=== PATIENT | male | born 1955 | race African-American/Black ===

== ENCOUNTER → 2018-06-19 | Outpatient (CLI) | payer BC ==
[~2018-06-19] MED LIST: ASPI-1159 PO; CENTRUM; FENO145T36 PO; FLUT16SP15 NS; IRBE300T42 PO; IRON; MUCINEX; ROBITUSSIN
[2018-06-19 10:18] LABS: BASOPHILS % 1.3 % (0.0-2.0); EOSINOPHILS % 1.6 % (0.0-5.0); HEMATOCRIT. 39.8 % (42.0-52.0); HEMOGLOBIN. 13.5 g/dL (14.0-18.0); LYMPHOCYTES % 26.5 % (20.0-50.0); MEAN CORPUSCULAR HEMOGLOBIN 31.4 pg (28.0-32.0); MEAN CORPUSCULAR VOLUME 92.6 fL (80.0-94.0); MEAN PLATELET VOLUME 8.7 fl (7.4-10.4); MONOCYTES % 6.5 % (2.0-8.0); NEUTROPHILS % 64.1 % (40.0-76.0); PLATELET 232 x1000/uL (130-400); RED CELL DISTRIBUTION WIDTH 12.3 % (11.6-14.6)
[2018-06-19 10:29] LABS: CLARITY URINE CLEAR (CLEAR); COLOR URINE YELLOW (YELLOW); KETONES URINE NEGATIVE (NEGATIVE); LEUKOCYTE ESTERASE URINE NEGATIVE (NEGATIVE); NITRITE URINE NEGATIVE (NEGATIVE); OCCULT BLOOD URINE TRACE (NEGATIVE); PH URINE 6.5 (4.5-8.0); PROTEIN URINE NEGATIVE (NEGATIVE); SPECIFIC GRAVITY URINE 1.022 (1.005-1.030)
[2018-06-19 10:37] LABS: CHLORIDE 102 mEq/L (98-107)
[2018-06-19 10:45] LABS: HDL CHOLESTEROL 52 mg/dL (40-59)
[2018-06-19 10:47] LABS: LDL CHOLESTEROL 90 mg/dL (5-100)
[2018-06-19 10:49] LABS: T4 FREE 1.03 ng/dL (0.76-1.46)
== END | disposition home or self-care (01) ==
LOC: LAB 09:47
PROVIDERS: ATTEND Specialist
DX: E78.2 Mixed hyperlipidemia (principal); N39.0 Urinary tract infection, site not specified
CPT/HCPCS: 36415; 80061; 82652; 83036; 84439; 84443; 84481

== ENCOUNTER → 2020-04-27 | Outpatient (CLI) | payer BC ==
[~2020-04-27] MED LIST changes: -ASPI-1159 PO; +ASPI-1497 PO; +FENO145T25 PO; -FENO145T36 PO
[2020-04-27 11:47] LABS: BASOPHILS % 1.3 % (0.0-2.0); EOSINOPHILS % 1.9 % (0.0-5.0); HEMATOCRIT. 40.3 % (42.0-52.0); HEMOGLOBIN. 13.8 g/dL (14.0-18.0); LYMPHOCYTES % 23.9 % (20.0-50.0); MEAN CORPUSCULAR HEMOGLOBIN 30.9 pg (28.0-32.0); MEAN CORPUSCULAR VOLUME 90.3 fL (80.0-94.0); MEAN PLATELET VOLUME 8.4 fl (7.4-10.4); MONOCYTES % 8.3 % (2.0-8.0); NEUTROPHILS % 64.6 % (40.0-76.0); PLATELET 241 x1000/uL (130-400); RED BLOOD CELL COUNT 4.46 mill/uL (4.7-6.1); RED CELL DISTRIBUTION WIDTH 12.3 % (11.6-14.6)
[2020-04-27 11:53] LABS: CHLORIDE 106 mEq/L (98-107)
== END | disposition home or self-care (01) ==
LOC: LAB 11:21
PROVIDERS: ATTEND Internal Medicine Gastroenterology
DX: R10.30 Lower abdominal pain, unspecified (principal)
CPT/HCPCS: 36415; 80053; 85025

== ENCOUNTER → 2020-04-29 | Outpatient (CLI) | payer BC ==
[~2020-04-29] MED LIST changes: +IOHEXOL-300 100 ML BOTTLE ONE
== END | disposition home or self-care (01) ==
LOC: CT 06:53
PROVIDERS: ATTEND Internal Medicine Gastroenterology
DX: K57.30 Diverticulosis of large intestine without perforation or abscess without bleeding (principal); K42.9 Umbilical hernia without obstruction or gangrene; N40.0 Benign prostatic hyperplasia without lower urinary tract symptoms; M47.819 Spondylosis without myelopathy or radiculopathy, site unspecified; I70.90 Unspecified atherosclerosis; J98.11 Atelectasis
CPT/HCPCS: 74177; Q9967; Z7610

== ENCOUNTER → 2020-06-17 | Outpatient (CLI) | payer BC ==
[~2020-06-17] MED LIST changes: -IOHEXOL-300 100 ML BOTTLE ONE
[2020-06-18 04:07] LABS: PSA FREE 1.14 ng/mL
== END | disposition home or self-care (01) ==
LOC: LAB 07:10
PROVIDERS: ATTEND Urology
DX: N40.0 Benign prostatic hyperplasia without lower urinary tract symptoms (principal)
CPT/HCPCS: 84153; 84154

== ENCOUNTER → 2020-12-21 | Outpatient (CLI) | payer BC ==
[2020-12-22 07:09] LABS: % FREE PSA 21.6 % (.); PSA FREE 1.51 ng/mL
== END | disposition home or self-care (01) ==
LOC: LAB 08:54
PROVIDERS: ATTEND Urology
DX: N40.0 Benign prostatic hyperplasia without lower urinary tract symptoms (principal)
CPT/HCPCS: 84153; 84154

== ENCOUNTER → 2021-08-25 | Outpatient (CLI) | payer BC ==
[2021-08-25 07:24] LABS: BASOPHILS % 1.6 % (0.0-2.0); EOSINOPHILS % 2.6 % (0.0-5.0); HEMOGLOBIN. 13.4 g/dL (14.0-18.0); LYMPHOCYTES % 24.6 % (20.0-50.0); MEAN CORPUSCULAR HEMOGLOBIN 30.2 pg (28.0-32.0); MEAN CORPUSCULAR VOLUME 90.1 fL (80.0-94.0); MEAN PLATELET VOLUME 8.6 fl (7.4-10.4); MONOCYTES % 9.1 % (2.0-8.0); NEUTROPHILS % 62.1 % (40.0-76.0); PLATELET 217 x1000/uL (130-400); RED BLOOD CELL COUNT 4.44 mill/uL (4.7-6.1); RED CELL DISTRIBUTION WIDTH 12.9 % (11.6-14.6)
[2021-08-25 07:32] LABS: CHLORIDE 104 mEq/L (98-107)
[2021-08-25 07:47] LABS: HDL CHOLESTEROL 54 mg/dL (40-59); LDL CHOLESTEROL 73 mg/dL (5-100)
[2021-08-26 07:10] LABS: *CREATININE RANDOM URINE 144.1 mg/dL (Not Estab.); MICROALBUMIN RANDOM URINE 8.9 ug/mL (Not Estab.)
== END | disposition home or self-care (01) ==
LOC: LAB 06:51
PROVIDERS: ATTEND Internal Medicine Endocrinology, Diabetes & Metabolism
DX: I10 Essential (primary) hypertension (principal); E11.9 Type 2 diabetes mellitus without complications; E78.00 Pure hypercholesterolemia, unspecified
CPT/HCPCS: 36415; 80053; 80061; 82043; 82570; 83036; 84443; 85025

== ENCOUNTER → 2022-01-19 | Outpatient (CLI) | payer BC | END | disposition home or self-care (01) | LOC: LAB 07:10 | PROVIDERS: ATTEND Urology | DX: N40.0 Benign prostatic hyperplasia without lower urinary tract symptoms (principal); R97.20 Elevated prostate specific antigen [PSA] | CPT/HCPCS: 36415; 84153; G0103 ==

== ENCOUNTER → 2022-02-15 | Outpatient (CLI) | payer BC ==
[2022-02-15 08:39] LABS: CHLORIDE 103 mEq/L (98-107)
== END | disposition home or self-care (01) ==
LOC: LAB 06:55
PROVIDERS: ATTEND Urology
DX: R97.20 Elevated prostate specific antigen [PSA] (principal); N40.1 Benign prostatic hyperplasia with lower urinary tract symptoms
CPT/HCPCS: 36415; 80048

== ENCOUNTER → 2022-05-31 | Outpatient (CLI) | payer BC ==
[2022-05-31 08:00] LABS: BASOPHILS % 0.4 % (0.0-2.0); EOSINOPHILS % 1.7 % (0.0-5.0); HEMATOCRIT. 42.1 % (42.0-52.0); HEMOGLOBIN. 14.4 g/dL (14.0-18.0); LYMPHOCYTES % 23.5 % (20.0-50.0); MEAN CORPUSCULAR HEMOGLOBIN 31.4 pg (28.0-32.0); MEAN CORPUSCULAR VOLUME 91.5 fL (80.0-94.0); MONOCYTES % 9.4 % (2.0-8.0); PLATELET 227 x1000/uL (130-400); RED CELL DISTRIBUTION WIDTH 12.6 % (11.6-14.6)
[2022-05-31 08:56] LABS: CHLORIDE 103 mEq/L (98-107); HDL CHOLESTEROL 64 mg/dL (40-59); LDL CHOLESTEROL 133 mg/dL (5-100)
[2022-06-02 08:09] LABS: *CREATININE RANDOM URINE 39.5 mg/dL (Not Estab.); MICROALBUMIN RANDOM URINE 26.4 ug/mL (Not Estab.)
== END | disposition home or self-care (01) ==
LOC: LAB 07:26
PROVIDERS: ATTEND Internal Medicine Endocrinology, Diabetes & Metabolism
DX: I10 Essential (primary) hypertension (principal); E11.9 Type 2 diabetes mellitus without complications; E78.5 Hyperlipidemia, unspecified
CPT/HCPCS: 36415; 80053; 80061; 82043; 82570; 83036; 85025

== ENCOUNTER → 2022-10-25 | Outpatient (CLI) | payer BC ==
[~2022-10-25] MED LIST changes: +AMLO10TA80 PO; +ATOR20TA65 PO; +DAPA10TA PO; +DUTA0.5C37 PO; +EMPA25TA PO; +FENO145 PO; +FLAS1KIT SQ; +MELO-104 PO; +OLME40TA18 PO; +SITA25TA3 MT; +TAMS-11 PO
[2022-10-25 12:06] LABS: EOSINOPHILS % 1.2 % (0.0-5.0); HEMATOCRIT. 43.8 % (42.0-52.0); MEAN CORPUSCULAR HEMOGLOBIN 31.1 pg (28.0-32.0); MEAN CORPUSCULAR HGB CONC 34.3 g/dL (31.0-37.0); MEAN CORPUSCULAR VOLUME 90.6 fL (80.0-94.0); MEAN PLATELET VOLUME 8.2 fl (7.4-10.4); MONOCYTES % 7.4 % (2.0-8.0); NEUTROPHILS % 72.4 % (40.0-76.0); PLATELET 222 x1000/uL (130-400); RED BLOOD CELL COUNT 4.83 mill/uL (4.7-6.1); RED CELL DISTRIBUTION WIDTH 12.4 % (11.6-14.6)
[2022-10-25 12:18] LABS: CHLORIDE 103 mEq/L (98-107); INDEX HEMOLYSI 1 (1-3); INDEX ICTERIC 1 (1-4); INDEX LIPEMIC 1 (1-3); SODIUM 137 mEq/L (136-145)
[2022-10-25 12:35] LABS: ALANINE AMINOTRANSFERASE 25 IU/L (13-61); ASPARTATE AMINOTRANSFERASE 18 IU/L (15-37); BILIRUBIN TOTAL 0.5 mg/dL (0.1-1.0); CALCIUM 9.2 mg/dL (8.5-10.1); CARBON DIOXIDE 29 mEq/L (21-32); CHOLESTEROL 228 mg/dL (<200); CREATININE 1.2 mg/dL (0.6-1.3); GLUCOSE 147 mg/dL (70-105); HDL CHOLESTEROL 63 mg/dL (40-59); LDL CHOLESTEROL 153 mg/dL (5-100); NT PRO B-TYPE NATRIURETIC PEP 83 pg/mL (5-125); PROTEIN TOTAL 7.8 g/dL (6.0-8.3); TRIGLYCERIDE 134 mg/dL (0-150); UREA NITROGEN BLOOD 20 mg/dL (7-21)
== END | disposition home or self-care (01) ==
LOC: LAB 11:39
PROVIDERS: ATTEND Specialist
DX: I11.9 Hypertensive heart disease without heart failure (principal); E78.2 Mixed hyperlipidemia
CPT/HCPCS: 36415; 80053; 80061; 82306; 83036; 83880; 84443; 85025

== ENCOUNTER 2022-11-01 11:30 | Inpatient (IN) | payer BC ==
[~2022-11-01] VITALS: Ht 172.7 cm; Wt 80.7 kg
[~2022-11-01 11:30] MED LIST changes: -AMLO10TA80 PO; -ATOR20TA65 PO; -DAPA10TA PO; -DUTA0.5C37 PO; -EMPA25TA PO; -FENO145 PO; -FLAS1KIT SQ; -MELO-104 PO; -OLME40TA18 PO; -SITA25TA3 MT; -TAMS-11 PO
[2022-11-01] MEDS ORDERED: ASPIRIN 325MG EC TABLET PO ONE (12:00)
[2022-11-01] MEDS ORDERED: AMLO10TA80 PO (12:44)
[2022-11-01] MEDS ORDERED: OLME40TA18 PO (12:44)
[2022-11-01] MEDS ORDERED: ATOR20TA65 PO (12:44)
[2022-11-01] MEDS ORDERED: DUTA0.5C37 PO (12:44)
[2022-11-01] MEDS ORDERED: FENO145 PO (12:44)
[2022-11-01] MEDS ORDERED: AMLODIPINE 5MG TABLET PO NR (12:45)
[2022-11-01] MEDS ORDERED: LOSARTAN POTASSIUM 50 MG TABLET PO SCH (12:45)
[2022-11-01 12:46] LABS: CHLORIDE 111 mEq/L (98-107); INDEX HEMOLYSI 2 (1-3); INDEX ICTERIC 1 (1-4); INDEX LIPEMIC 1 (1-3); POTASSIUM 3.7 mEq/L (3.5-5.1); SODIUM 138 mEq/L (136-145)
[2022-11-01] MEDS ORDERED: MELO-104 PO (12:47)
[2022-11-01] MEDS ORDERED: DAPA10TA PO (12:47)
[2022-11-01] MEDS ORDERED: TAMS-11 PO (12:47)
[2022-11-01] MEDS ORDERED: FLAS1KIT SQ (12:47)
[2022-11-01] MEDS ORDERED: EMPA25TA PO (12:47)
[2022-11-01 12:55] LABS: ALANINE AMINOTRANSFERASE 19 IU/L (13-61); ALBUMIN 3.2 g/dL (3.4-5.0); ASPARTATE AMINOTRANSFERASE 19 IU/L (15-37); BILIRUBIN TOTAL 0.5 mg/dL (0.1-1.0); CALCIUM 7.9 mg/dL (8.5-10.1); CARBON DIOXIDE 22 mEq/L (21-32); CREATININE 0.9 mg/dL (0.6-1.3); ETHANOL BLOOD < 10 mg/dL (-10); GLUCOSE 131 mg/dL (70-105); PROTEIN TOTAL 6.4 g/dL (6.0-8.3); UREA NITROGEN BLOOD 14 mg/dL (7-21)
[2022-11-01 12:56] LABS: EOSINOPHILS % 1.3 % (0.0-5.0); HEMATOCRIT. 43.4 % (42.0-52.0); HEMOGLOBIN. 14.5 g/dL (14.0-18.0); LYMPHOCYTES % 24.8 % (20.0-50.0); MEAN CORPUSCULAR HEMOGLOBIN 31.2 pg (28.0-32.0); MEAN CORPUSCULAR HGB CONC 33.5 g/dL (31.0-37.0); MEAN CORPUSCULAR VOLUME 93.1 fL (80.0-94.0); MEAN PLATELET VOLUME 8.6 fl (7.4-10.4); MONOCYTES % 8.7 % (2.0-8.0); NEUTROPHILS % 64.2 % (40.0-76.0); PLATELET 198 x1000/uL (130-400); RED BLOOD CELL COUNT 4.66 mill/uL (4.7-6.1); RED CELL DISTRIBUTION WIDTH 12.8 % (11.6-14.6); WHITE BLOOD COUNT 6.1 x1000/uL (4.5-11.0)
[2022-11-01] MEDS ORDERED: ACETAMINOPHEN 325MG TABLET PO PRN (13:30)
[2022-11-01] MEDS ORDERED: MECLIZINE 25MG TABLET PO PRN (13:30)
[2022-11-01] MEDS ORDERED: MAGNESIUM/ALUMINUM HYDROXIDE/SIMETHICONE 30ML UDC PO PRN (13:30)
[2022-11-01] MEDS ORDERED: TRAMADOL 50MG TABLET PO PRN (13:30)
[2022-11-01] MEDS ORDERED: GUAIFENESIN 200MG/10ML SUGAR FREE UDC PO PRN (13:30)
[2022-11-01] MEDS ORDERED: DOCUSATE SODIUM 100MG CAPSULE PO PRN (13:30)
[2022-11-01] MEDS ORDERED: ONDANSETRON HCL 4MG/2ML INJ IV PRN (13:30)
[2022-11-01] MEDS ORDERED: NALOXONE HCL 0.4MG/ML VIAL IV PRN (13:45)
[2022-11-01 13:53] LABS: CLARITY URINE CLEAR (CLEAR); COLOR URINE YELLOW (YELLOW); GLUCOSE URINE 2+ (NEGATIVE); KETONES URINE NEGATIVE (NEGATIVE); LEUKOCYTE ESTERASE URINE NEGATIVE (NEGATIVE); NITRITE URINE NEGATIVE (NEGATIVE); OCCULT BLOOD URINE 3+ (NEGATIVE); PH URINE 7.5 (4.5-8.0); PROTEIN URINE TRACE (NEGATIVE); SPECIFIC GRAVITY URINE 1.021 (1.005-1.030)
[2022-11-01 13:56] LABS: YEAST URINE NONE SEEN
[2022-11-01 14:00] VITALS: BP 180/99; PULSE 97; RESP 20; TEMP 97.3
[2022-11-01 14:07] LABS: RBC URINE 25-50 /hpf (0-2); WBC URINE 0-2 /hpf (0-2)
[2022-11-01 14:08] LABS: BACTERIA URINE FEW; SQUAMOUS EPITHELIAL CELL URINE RARE /lpf (RARE/1+)
[2022-11-01] MEDS: ENOXAPARIN 40MG/0.4ML SYR SUBCUT SCH (14:23)
[2022-11-01] MEDS ORDERED: CLONIDINE 0.1MG TABLET PO PRN (14:30)
[2022-11-01] MEDS ORDERED: SITA25TA3 MT (14:59)
[2022-11-01 15:18] LABS: *AMPHETAMINES SCREEN URINE NEGATIVE (NEGATIVE); *BARBITURATES SCREEN URINE NEGATIVE (NEGATIVE); *BENZODIAZEPINES SCREEN URINE NEGATIVE (NEGATIVE); *COCAINE SCREEN URINE NEGATIVE (NEGATIVE); CANNABINOID URINE SCREEN NEGATIVE (NEGATIVE); ECSTASY MDMA SCREEN URINE NEGATIVE (NEGATIVE); METHADONE URINE SCREEN NEGATIVE (NEGATIVE); OPIATES URINE SCREEN NEGATIVE (NEGATIVE); PHENCYCLIDINE URINE SCREEN NEGATIVE (NEGATIVE)
[2022-11-01 16:00] VITALS: BP 170/87; PULSE 71; RESP 18; TEMP 97.4
[2022-11-01] MEDS ORDERED: DEXTROSE 50% WATER 50ML SYRINGE IV PRN (20:15)
[2022-11-01] MEDS: CLOPIDOGREL 75MG TABLET PO SCH (20:48)
[2022-11-01] MEDS: ATORVASTATIN CALCIUM 40MG TABLET PO SCH (20:48)
[2022-11-01] MEDS: TAMSULOSIN HCL 0.4MG SR CAPSULE PO SCH (20:48)
[2022-11-01] MEDS: DUTASTERIDE 0.5MG CAPSULE PO SCH (20:48)
[2022-11-01] MEDS: BLOOD SUGAR DIAGNOSTIC STRIP TEST SCH (20:53)
[2022-11-01 20:54] VITALS: BP 151/75; PULSE 82; RESP 19; TEMP 97.2
[2022-11-01] MEDS: INSULIN LISPRO 100 UNITS/ML SUBCUT SCH (20:58)
[2022-11-02] VITALS (7 sets, daily range): BP systolic 123–156; BP diastolic 68–92; PULSE 80–95; RESP 18–20; TEMP 97.5–98.6
[2022-11-02] MEDS: BLOOD SUGAR DIAGNOSTIC STRIP TEST SCH ×4 (07:03→20:42)
[2022-11-02] MEDS: INSULIN LISPRO 100 UNITS/ML SUBCUT SCH ×4 (07:26→20:37)
[2022-11-02] MEDS: AMLODIPINE 10MG TABLET PO SCH (08:58)
[2022-11-02] MEDS: DUTASTERIDE 0.5MG CAPSULE PO SCH (08:59)
[2022-11-02] MEDS: CLOPIDOGREL 75MG TABLET PO SCH (08:59)
[2022-11-02] MEDS: TAMSULOSIN HCL 0.4MG SR CAPSULE PO SCH (08:59)
[2022-11-02] MEDS: ASPIRIN 325MG TABLET PO SCH (09:00)
[2022-11-02 12:49] LABS: BASOPHILS % 1.1 % (0.0-2.0); EOSINOPHILS % 1.9 % (0.0-5.0); HEMATOCRIT. 40.3 % (42.0-52.0); HEMOGLOBIN. 14.2 g/dL (14.0-18.0); LYMPHOCYTES % 23.8 % (20.0-50.0); MEAN CORPUSCULAR HEMOGLOBIN 31.9 pg (28.0-32.0); MEAN CORPUSCULAR HGB CONC 35.2 g/dL (31.0-37.0); MEAN CORPUSCULAR VOLUME 90.6 fL (80.0-94.0); MEAN PLATELET VOLUME 8.4 fl (7.4-10.4); MONOCYTES % 9.7 % (2.0-8.0); NEUTROPHILS % 63.5 % (40.0-76.0); PLATELET 214 x1000/uL (130-400); RED BLOOD CELL COUNT 4.44 mill/uL (4.7-6.1); RED CELL DISTRIBUTION WIDTH 12.3 % (11.6-14.6)
[2022-11-02 12:53] LABS: CHLORIDE 103 mEq/L (98-107); INDEX HEMOLYSI 1 (1-3); INDEX ICTERIC 1 (1-4); INDEX LIPEMIC 1 (1-3); POTASSIUM 3.9 mEq/L (3.5-5.1); SODIUM 136 mEq/L (136-145)
[2022-11-02 13:03] LABS: ALANINE AMINOTRANSFERASE 22 IU/L (13-61); ALBUMIN 3.6 g/dL (3.4-5.0); ASPARTATE AMINOTRANSFERASE 16 IU/L (15-37); BILIRUBIN TOTAL 0.6 mg/dL (0.1-1.0); CALCIUM 9.3 mg/dL (8.5-10.1); CARBON DIOXIDE 31 mEq/L (21-32); CHOLESTEROL 197 mg/dL (<200); CREATININE 1.1 mg/dL (0.6-1.3); GLUCOSE 157 mg/dL (70-105); HDL CHOLESTEROL 56 mg/dL (40-59); LDL CHOLESTEROL 128 mg/dL (5-100); PROTEIN TOTAL 7.2 g/dL (6.0-8.3); TRIGLYCERIDE 77 mg/dL (0-150); UREA NITROGEN BLOOD 14 mg/dL (7-21)
[2022-11-02] MEDS: ENOXAPARIN 40MG/0.4ML SYR SUBCUT SCH (15:44)
[2022-11-02] MEDS: ATORVASTATIN CALCIUM 40MG TABLET PO SCH (20:26)
[2022-11-02] MEDS ORDERED: MELATONIN 3MG TABLET PO NR (21:00)
[2022-11-03 04:00] VITALS: BP 159/81; PULSE 99; RESP 18; TEMP 97.7
[2022-11-03 06:43] VITALS: BP 159/81; PULSE 99; RESP 18; TEMP 97.7
[2022-11-03] MEDS: BLOOD SUGAR DIAGNOSTIC STRIP TEST SCH ×3 (06:45→17:34)
[2022-11-03] MEDS: INSULIN LISPRO 100 UNITS/ML SUBCUT SCH ×3 (06:55→17:32)
[2022-11-03 08:00] VITALS: BP 143/86; PULSE 93; RESP 20; TEMP 97.3
[2022-11-03 08:20] LABS: BASOPHILS % 0.7 % (0.0-2.0); EOSINOPHILS % 2.2 % (0.0-5.0); HEMATOCRIT. 44.1 % (42.0-52.0); HEMOGLOBIN. 14.6 g/dL (14.0-18.0); LYMPHOCYTES % 31.7 % (20.0-50.0); MEAN CORPUSCULAR HEMOGLOBIN 31.1 pg (28.0-32.0); MEAN CORPUSCULAR HGB CONC 33.2 g/dL (31.0-37.0); MEAN CORPUSCULAR VOLUME 93.9 fL (80.0-94.0); MONOCYTES % 9.3 % (2.0-8.0); NEUTROPHILS % 56.1 % (40.0-76.0); PLATELET 234 x1000/uL (130-400); RED CELL DISTRIBUTION WIDTH 12.4 % (11.6-14.6); WHITE BLOOD COUNT 5.8 x1000/uL (4.5-11.0)
[2022-11-03] MEDS: TAMSULOSIN HCL 0.4MG SR CAPSULE PO SCH (08:49)
[2022-11-03] MEDS: ASPIRIN 325MG TABLET PO SCH (08:49)
[2022-11-03] MEDS: DUTASTERIDE 0.5MG CAPSULE PO SCH (08:49)
[2022-11-03] MEDS: AMLODIPINE 10MG TABLET PO SCH (08:50)
[2022-11-03] MEDS: TRIAMTERENE/HCTZ 37.5/25MG TABLET PO SCH ×2 (08:50→08:52)
[2022-11-03] MEDS: CLOPIDOGREL 75MG TABLET PO SCH (08:51)
[2022-11-03] MEDS: LOSARTAN POTASSIUM 100 MG TABLET PO SCH (08:51)
[2022-11-03 08:58] LABS: CHLORIDE 101 mEq/L (98-107); INDEX HEMOLYSI 1 (1-3); INDEX ICTERIC 1 (1-4); INDEX LIPEMIC 1 (1-3); SODIUM 136 mEq/L (136-145)
[2022-11-03 09:07] LABS: CALCIUM 9.2 mg/dL (8.5-10.1); CARBON DIOXIDE 29 mEq/L (21-32); CREATININE 1.1 mg/dL (0.6-1.3); GLUCOSE 175 mg/dL (70-105); UREA NITROGEN BLOOD 12 mg/dL (7-21)
[2022-11-03 12:00] VITALS: BP 145/81; PULSE 85; RESP 18; TEMP 97.3
[2022-11-03] MEDS: ENOXAPARIN 40MG/0.4ML SYR SUBCUT SCH (14:01)
[2022-11-03 16:00] VITALS: BP 140/82; PULSE 94; RESP 18; TEMP 97.5
[2022-11-03 16:51] VITALS: BP 145/81; PULSE 85; TEMP 97.3; O2SAT 99
[2022-11-03] MEDS ORDERED: ATORVASTATIN CALCIUM 40MG TABLET PO SCH (21:00)
== END 2022-11-03 19:20 | disposition home or self-care (01) | DRG 66 ==
LOC: ER 11:30 → 7WST 12:42 → EDBEDREQTM 12:45 → EDBEDREQ 12:45
PROVIDERS: ADMIT Hospitalist; ATTEND Hospitalist
DX: I63.89 Other cerebral infarction (principal); E78.5 Hyperlipidemia, unspecified; I10 Essential (primary) hypertension; I16.0 Hypertensive urgency; E11.9 Type 2 diabetes mellitus without complications; Z87.891 Personal history of nicotine dependence; Z91.148 Patient's other noncompliance with medication regimen for other reason; Z82.49 Family history of ischemic heart disease and other diseases of the circulatory system; E78.00 Pure hypercholesterolemia, unspecified
CPT/HCPCS: 36415; 70544; 71045; 80048; 80053; 80061; 80305; 80320; 81003; 82962; 83735; 85025; 92523; 93005; 93880; 93970; 97162; 97165; 99285; J1650; J1815; G0480

== ENCOUNTER → 2022-11-01 | Outpatient (CLI) | payer BC | END | disposition home or self-care (01) | LOC: RAD 07:41 | PROVIDERS: ATTEND Specialist | DX: G31.9 Degenerative disease of nervous system, unspecified (principal); I67.82 Cerebral ischemia; I51.7 Cardiomegaly; R42 Dizziness and giddiness; R94.31 Abnormal electrocardiogram [ECG] [EKG] | CPT/HCPCS: 93306; 70553; A9577 ==

== ENCOUNTER → 2022-12-06 | Outpatient (CLI) | payer BC ==
[~2022-12-06] MED LIST changes: +AMLO10TA80 PO; -ASPI-1497 PO; -CENTRUM; +FENO145 PO; -FENO145T25 PO; +FLAS1KIT SQ; -FLUT16SP15 NS; -IRBE300T42 PO; -IRON; -MUCINEX; +OLME40TA18 PO; -ROBITUSSIN; +SITA25TA3 MT
== END | disposition home or self-care (01) ==
LOC: LAB 12:07
PROVIDERS: ATTEND Urology
DX: C61 Malignant neoplasm of prostate (principal)
CPT/HCPCS: 36415; 84153; G0103

== ENCOUNTER → 2023-01-01 | Outpatient (CLI) | payer BC ==
[2023-01-01 12:19] LABS: BASOPHILS % 0.9 % (0.0-2.0); EOSINOPHILS % 1.7 % (0.0-5.0); HEMATOCRIT. 39.2 % (42.0-52.0); HEMOGLOBIN. 13.2 g/dL (14.0-18.0); LYMPHOCYTES % 20.6 % (20.0-50.0); MEAN CORPUSCULAR HEMOGLOBIN 30.8 pg (28.0-32.0); MEAN CORPUSCULAR HGB CONC 33.8 g/dL (31.0-37.0); MEAN PLATELET VOLUME 7.6 fl (7.4-10.4); MONOCYTES % 7.4 % (2.0-8.0); NEUTROPHILS % 69.4 % (40.0-76.0); PLATELET 250 x1000/uL (130-400); RED BLOOD CELL COUNT 4.31 mill/uL (4.7-6.1); WHITE BLOOD COUNT 7.9 x1000/uL (4.5-11.0)
[2023-01-01 17:53] LABS: CHLORIDE 103 mEq/L (98-107); INDEX HEMOLYSI 1 (1-3); INDEX ICTERIC 1 (1-4); INDEX LIPEMIC 1 (1-3); POTASSIUM 3.7 mEq/L (3.5-5.1); SODIUM 137 mEq/L (136-145)
[2023-01-01 18:06] LABS: CALCIUM 9.3 mg/dL (8.5-10.1); CARBON DIOXIDE 27 mEq/L (21-32); CHOLESTEROL 126 mg/dL (<200); CREATININE 1.1 mg/dL (0.6-1.3); GLUCOSE 140 mg/dL (70-105); HDL CHOLESTEROL 54 mg/dL (40-59); LDL CHOLESTEROL 69 mg/dL (5-100); T4 FREE 1.19 ng/dL (0.76-1.46); TRIGLYCERIDE 69 mg/dL (0-150); UREA NITROGEN BLOOD 15 mg/dL (7-21)
[2023-01-01 22:51] LABS: ALANINE AMINOTRANSFERASE 26 IU/L (13-61); ALBUMIN 3.9 g/dL (3.4-5.0); ASPARTATE AMINOTRANSFERASE 21 IU/L (15-37); BILIRUBIN TOTAL 0.6 mg/dL (0.1-1.0); PROTEIN TOTAL 7.4 g/dL (6.0-8.3)
[2023-01-03 14:08] LABS: *CREATININE RANDOM URINE 302.5 mg/dL (Not Estab.)
== END | disposition home or self-care (01) ==
LOC: LAB 11:33
PROVIDERS: ATTEND Internal Medicine Gastroenterology
DX: E11.9 Type 2 diabetes mellitus without complications (principal)
CPT/HCPCS: 36415; 80053; 80061; 82043; 82570; 83036; 84439; 84443; 85025; 87015; 87045; 87427

== ENCOUNTER → 2023-01-10 | Outpatient (CLI) | payer BC ==
[~2023-01-10] MED LIST changes: +IOHEXOL-300 100 ML BOTTLE ONE
== END | disposition home or self-care (01) ==
LOC: CT 07:15
PROVIDERS: ATTEND Internal Medicine Gastroenterology
DX: N40.0 Benign prostatic hyperplasia without lower urinary tract symptoms (principal); N28.1 Cyst of kidney, acquired; K57.90 Diverticulosis of intestine, part unspecified, without perforation or abscess without bleeding; R19.7 Diarrhea, unspecified
CPT/HCPCS: 74177; Q9967; Z7610

== ENCOUNTER 2023-03-18 06:30 | Inpatient (IN) | payer BC ==
[~2023-03-18] VITALS: Ht 172.7 cm; Wt 79.4 kg
[~2023-03-18 06:30] MED LIST changes: -IOHEXOL-300 100 ML BOTTLE ONE
[2023-03-18] MEDS ORDERED: SODIUM CHLORIDE 0.9% 1,000 ML IV ONE (07:00)
[2023-03-18 08:25] LABS: BASOPHILS % 0.4 % (0.0-2.0); EOSINOPHILS % 0.8 % (0.0-5.0); HEMATOCRIT. 37.9 % (42.0-52.0); HEMOGLOBIN. 12.4 g/dL (14.0-18.0); LYMPHOCYTES % 8.8 % (20.0-50.0); MEAN CORPUSCULAR HEMOGLOBIN 30.9 pg (28.0-32.0); MEAN CORPUSCULAR HGB CONC 32.8 g/dL (31.0-37.0); MEAN CORPUSCULAR VOLUME 94.2 fL (80.0-94.0); MEAN PLATELET VOLUME 8.9 fl (7.4-10.4); MONOCYTES % 7.3 % (2.0-8.0); NEUTROPHILS % 82.7 % (40.0-76.0); PLATELET 193 x1000/uL (130-400); RED BLOOD CELL COUNT 4.02 mill/uL (4.7-6.1); RED CELL DISTRIBUTION WIDTH 12.5 % (11.6-14.6); WHITE BLOOD COUNT 14.9 x1000/uL (4.5-11.0)
[2023-03-18 08:42] LABS: ALANINE AMINOTRANSFERASE 22 IU/L (10-49); ALBUMIN 3.8 g/dL (3.2-4.8); ASPARTATE AMINOTRANSFERASE 25 IU/L (<34); BILIRUBIN TOTAL 0.6 mg/dL (0.1-1.0); CALCIUM 8.8 mg/dL (8.7-10.4); CARBON DIOXIDE 29 mEq/L (21-32); CHLORIDE 102 mEq/L (98-107); GLUCOSE 277 mg/dL (70-105); PROTEIN TOTAL 6.6 g/dL (6.0-8.3); SODIUM 136 mEq/L (136-145); UREA NITROGEN BLOOD 27 mg/dL (9-23)
[2023-03-18 08:55] LABS: INR 1.1; PROTHROMBIN TIME 11.3 sec (9.6-11.0)
[2023-03-18] MEDS ORDERED: IPRATROPIUM/ALBUTEROL 0.5-3(2.5)MG/3ML NEB HHN PRN ×2 (09:00→09:15)
[2023-03-18] MEDS ORDERED: PANTOPRAZOLE SODIUM 40 MG/VIAL IV SCH (09:00)
[2023-03-18] MEDS ORDERED: CLONIDINE 0.1MG TABLET PO PRN (09:15)
[2023-03-18] MEDS ORDERED: DIPHENHYDRAMINE 50MG/ML VIAL IV PRN (09:15)
[2023-03-18] MEDS ORDERED: ONDANSETRON HCL 4MG/2ML INJ IV PRN (09:15)
[2023-03-18 09:43] LABS: IRON 87 ug/dL (65-175); TOTAL IRON BINDING CAPACITY 212 ug/dl (250-425)
[2023-03-18 10:00] VITALS: BP 131/63; PULSE 99; RESP 18; TEMP 97.6
[2023-03-18 10:02] LABS: FERRITIN 130 ng/mL (22-322)
[2023-03-18] MEDS: DEXT 5%/0.9% NACL 1,000 ML IV SCH ×2 (10:06→21:45)
[2023-03-18 10:35] LABS: VITAMIN B12 SERUM > 2000 pg/mL (211-911)
[2023-03-18] MEDS: PANTOPRAZOLE SODIUM 40 MG/VIAL IV SCH ×2 (13:19→21:17)
[2023-03-18] MEDS ORDERED: DEXTROSE 50% WATER 50ML SYRINGE IV PRN (13:30)
[2023-03-18 13:41] LABS: HEMATOCRIT 36.2 % (42.0-52.0); HEMOGLOBIN 12.4 g/dL (14.0-18.0)
[2023-03-18] MEDS ORDERED: INSULIN LISPRO 100 UNITS/ML SUBCUT NR (13:45)
[2023-03-18 16:00] VITALS: BP 135/71; PULSE 94; RESP 18; TEMP 97.9
[2023-03-18 16:34] LABS: CLARITY URINE CLEAR (CLEAR); COLOR URINE YELLOW (YELLOW); GLUCOSE URINE NEGATIVE (NEGATIVE); KETONES URINE NEGATIVE (NEGATIVE); LEUKOCYTE ESTERASE URINE NEGATIVE (NEGATIVE); NITRITE URINE NEGATIVE (NEGATIVE); OCCULT BLOOD URINE NEGATIVE (NEGATIVE); PH URINE 6.5 (4.5-8.0); PROTEIN URINE NEGATIVE (NEGATIVE); SPECIFIC GRAVITY URINE 1.015 (1.005-1.030); UROBILINOGEN URINE 0.2 E.U./dL (0.2-1.0)
[2023-03-18] MEDS: BLOOD SUGAR DIAGNOSTIC STRIP TEST SCH ×2 (16:52→21:11)
[2023-03-18] MEDS: INSULIN LISPRO 100 UNITS/ML SUBCUT SCH ×2 (17:15→21:00)
[2023-03-18 20:00] VITALS: BP 117/70; PULSE 93; RESP 20; TEMP 97.2
[2023-03-18 20:57] LABS: HEMATOCRIT 33.2 % (42.0-52.0); HEMOGLOBIN 11.3 g/dL (14.0-18.0); MEAN CORPUSCULAR HEMOGLOBIN 31.1 pg (28.0-32.0); MEAN CORPUSCULAR HGB CONC 34.1 g/dL (31.0-37.0); MEAN CORPUSCULAR VOLUME 91.4 fL (80.0-94.0); PLATELET 200 x1000/uL (130-400); RED BLOOD CELL COUNT 3.64 mill/uL (4.7-6.1); RED CELL DISTRIBUTION WIDTH 12.5 % (11.6-14.6)
[2023-03-18] MEDS ORDERED: TEMAZEPAM 15MG CAPSULE PO SCH (21:00)
[2023-03-19] VITALS: BP 145/78; PULSE 98; RESP 19; TEMP 97.2
[2023-03-19 04:00] VITALS: BP 133/68; PULSE 87; RESP 19; TEMP 97.7
[2023-03-19] MEDS: ACETAMINOPHEN 325MG TABLET PO PRN ×2 (04:35→12:35)
[2023-03-19 05:58] LABS: BASOPHILS % 0.9 % (0.0-2.0); EOSINOPHILS % 3.5 % (0.0-5.0); HEMATOCRIT. 33.9 % (42.0-52.0); HEMOGLOBIN. 11.4 g/dL (14.0-18.0); LYMPHOCYTES % 24.9 % (20.0-50.0); MEAN CORPUSCULAR HGB CONC 33.5 g/dL (31.0-37.0); MEAN CORPUSCULAR VOLUME 92.6 fL (80.0-94.0); MEAN PLATELET VOLUME 8.6 fl (7.4-10.4); MONOCYTES % 11.3 % (2.0-8.0); NEUTROPHILS % 59.4 % (40.0-76.0); PLATELET 185 x1000/uL (130-400); RED BLOOD CELL COUNT 3.66 mill/uL (4.7-6.1); RED CELL DISTRIBUTION WIDTH 12.8 % (11.6-14.6); WHITE BLOOD COUNT 6.1 x1000/uL (4.5-11.0)
[2023-03-19 07:04] LABS: ALANINE AMINOTRANSFERASE 18 IU/L (10-49); ALBUMIN 3.1 g/dL (3.2-4.8); ASPARTATE AMINOTRANSFERASE 17 IU/L (<34); BILIRUBIN TOTAL 0.6 mg/dL (0.1-1.0); CALCIUM 8.5 mg/dL (8.7-10.4); CARBON DIOXIDE 28 mEq/L (21-32); CHLORIDE 106 mEq/L (98-107); CREATININE 0.9 mg/dL (0.6-1.3); GLUCOSE 171 mg/dL (70-105); POTASSIUM 3.7 mEq/L (3.5-5.1); PROTEIN TOTAL 5.6 g/dL (6.0-8.3); SODIUM 140 mEq/L (136-145); UREA NITROGEN BLOOD 12 mg/dL (9-23)
[2023-03-19] MEDS: BLOOD SUGAR DIAGNOSTIC STRIP TEST SCH ×3 (07:40→17:27)
[2023-03-19 08:00] VITALS: BP 136/82; PULSE 91; RESP 18; TEMP 97.6
[2023-03-19] MEDS: INSULIN LISPRO 100 UNITS/ML SUBCUT SCH ×3 (08:10→17:27)
[2023-03-19] MEDS: PANTOPRAZOLE SODIUM 40 MG/VIAL IV SCH (08:56)
[2023-03-19] MEDS ORDERED: SIMETHICONE 40 MG/0.6 ML 15ML ONE (09:15)
[2023-03-19] MEDS ORDERED: LIDOCAINE HCL 1% 10 MG/ML 10ML VIAL ONE (09:16)
[2023-03-19] MEDS ORDERED: FENTANYL CITRATE/PF 50MCG/ML 2ML VIAL ONE (09:17)
[2023-03-19] MEDS ORDERED: PROPOFOL 200MG/20ML VIAL IV ONE (09:17)
[2023-03-19] MEDS ORDERED: MIDAZOLAM HCL 2 MG/2 ML VIAL ONE (09:19)
[2023-03-19] MEDS ORDERED: PHENYLEPHRINE HCL 10 MG/ML 1ML (IV VIAL) IV ONE (09:21)
[2023-03-19] MEDS ORDERED: EPHEDRINE SULFATE 50MG/ML VIAL ONE (09:24)
[2023-03-19] MEDS ORDERED: GLYCOPYRROLATE 0.2 MG/ML 2ML VIAL ONE (09:25)
[2023-03-19] MEDS: DEXT 5%/0.9% NACL 1,000 ML IV SCH (10:15)
[2023-03-19 12:00] VITALS: BP 122/75; PULSE 99; RESP 18; TEMP 97.7
[2023-03-19 12:03] LABS: HEMATOCRIT 34.2 % (42.0-52.0); HEMOGLOBIN 11.6 g/dL (14.0-18.0)
[2023-03-19] MEDS: SUCRALFATE 1G TABLET PO SCH ×2 (12:35→17:27)
[2023-03-19] MEDS ORDERED: SUCR1TAB30 PO (13:27)
[2023-03-19] MEDS ORDERED: TEMA15CA PO (13:27)
[2023-03-19] MEDS ORDERED: PANT40TA51 MT (13:27)
[2023-03-19 16:00] VITALS: BP 151/80; PULSE 87; RESP 18; TEMP 97.4
[2023-03-19 16:28] VITALS: BP 122/75; PULSE 87; TEMP 97.7; O2SAT 99
== END 2023-03-19 19:55 | disposition home or self-care (01) | DRG 379 ==
LOC: ER 07:39 → 7WST 08:54
PROVIDERS: ADMIT Family Medicine Adult Medicine; ATTEND Family Medicine Adult Medicine
PROC: 0DB78ZX Excision of Stomach, Pylorus, Via Natural or Artificial Opening Endoscopic, Diagnostic (ICD-10-PCS; principal; 2023-03-19)
DX: K29.71 Gastritis, unspecified, with bleeding (principal); D72.829 Elevated white blood cell count, unspecified; E11.65 Type 2 diabetes mellitus with hyperglycemia; I10 Essential (primary) hypertension; E78.5 Hyperlipidemia, unspecified; G90.8 Other disorders of autonomic nervous system; T50.995A Adverse effect of other drugs, medicaments and biological substances, initial encounter; H93.13 Tinnitus, bilateral; D64.9 Anemia, unspecified; Z86.73 Personal history of transient ischemic attack (TIA), and cerebral infarction without residual deficits; W18.39XA Other fall on same level, initial encounter; Y93.89 Activity, other specified; Y92.89 Other specified places as the place of occurrence of the external cause; Y99.8 Other external cause status; Z79.4 Long term (current) use of insulin
CPT/HCPCS: 36415; 71045; 80053; 81003; 82607; 82728; 82746; 82962; 83540; 83550; 85014; 85018; 85025; 85027; 85044; 86850; 86900; 88305; 93970; 99285; C9113; J1815; J2250; J2370; J2704; J3010; J3490; J7030

== ENCOUNTER → 2023-04-11 | Outpatient (CLI) | payer BC ==
[~2023-04-11] MED LIST changes: +PANT40TA51 MT; +SUCR1TAB MT; +SUCR1TAB30 PO; +TEMA15CA PO
[2023-04-12 07:22] LABS: ALANINE AMINOTRANSFERASE 27 IU/L (10-49); ASPARTATE AMINOTRANSFERASE 21 IU/L (<34); BILIRUBIN TOTAL 0.7 mg/dL (0.1-1.0); CALCIUM 9.3 mg/dL (8.7-10.4); CARBON DIOXIDE 29 mEq/L (21-32); CHLORIDE 103 mEq/L (98-107); CREATININE 1.3 mg/dL (0.6-1.3); GLUCOSE 300 mg/dL (70-105); LACTATE DEHYDROGENASE 123 IU/L (120-246); POTASSIUM 4.3 mEq/L (3.5-5.1); PROTEIN TOTAL 7.4 g/dL (6.0-8.3); SODIUM 138 mEq/L (136-145); UREA NITROGEN BLOOD 17 mg/dL (9-23)
[2023-04-12 08:04] LABS: HEPATITIS A AB IGM NEGATIVE (Negative); HEPATITIS B CORE AB IGM NEGATIVE (Negative); HEPATITIS B SURFACE ANTIGEN NEGATIVE (Negative); HEPATITIS C AB NON REACTIVE (Neg) (Negative)
[2023-04-12 08:43] LABS: BASOPHILS % 0.9 % (0.0-2.0); EOSINOPHILS % 3.3 % (0.0-5.0); HEMATOCRIT. 41.5 % (42.0-52.0); HEMOGLOBIN. 13.7 g/dL (14.0-18.0); LYMPHOCYTES % 26.3 % (20.0-50.0); MEAN CORPUSCULAR HEMOGLOBIN 30.9 pg (28.0-32.0); MEAN CORPUSCULAR VOLUME 93.5 fL (80.0-94.0); MEAN PLATELET VOLUME 8.6 fl (7.4-10.4); MONOCYTES % 8.9 % (2.0-8.0); NEUTROPHILS % 60.6 % (40.0-76.0); PLATELET 227 x1000/uL (130-400); RED BLOOD CELL COUNT 4.44 mill/uL (4.7-6.1); RED CELL DISTRIBUTION WIDTH 12.9 % (11.6-14.6); WHITE BLOOD COUNT 6.5 x1000/uL (4.5-11.0)
== END | disposition home or self-care (01) ==
LOC: LAB 07:12
PROVIDERS: ATTEND Internal Medicine Hematology & Oncology
DX: C88.4 Extranodal marginal zone B-cell lymphoma of mucosa-associated lymphoid tissue [MALT-lymphoma] (principal)
CPT/HCPCS: 36415; 80053; 83615; 85025; 86709; 87340

== ENCOUNTER → 2023-10-18 | Outpatient (CLI) | payer BC ==
[2023-10-18 11:02] LABS: CHLORIDE 103 mEq/L (98-107); POTASSIUM 4.1 mEq/L (3.5-5.1); SODIUM 138 mEq/L (136-145)
[2023-10-18 11:03] LABS: CALCIUM 9.7 mg/dL (8.7-10.4); CARBON DIOXIDE 29 mEq/L (21-32)
[2023-10-18 11:08] LABS: CREATININE 1.5 mg/dL (0.6-1.3); GLUCOSE 217 mg/dL (70-105)
[2023-10-18 11:09] LABS: TRIGLYCERIDE 87 mg/dL (0-150); UREA NITROGEN BLOOD 16 mg/dL (9-23)
[2023-10-18 11:10] LABS: ALANINE AMINOTRANSFERASE 24 IU/L (10-49); ALBUMIN 4.4 g/dL (3.2-4.8); ASPARTATE AMINOTRANSFERASE 25 IU/L (<34); CHOLESTEROL 168 mg/dL (<200); LDL CHOLESTEROL 107 mg/dL (5-100)
[2023-10-18 11:11] LABS: BILIRUBIN TOTAL 0.8 mg/dL (0.1-1.0); HDL CHOLESTEROL 60 mg/dL (>55); PROTEIN TOTAL 7.2 g/dL (6.0-8.3)
[2023-10-18 11:12] LABS: T4 FREE 1.38 ng/dL (0.89-1.76)
[2023-10-18 11:13] LABS: THYROID STIMULATING HORMONE 1.22 uIU/mL (0.55-4.78)
[2023-10-18 11:15] LABS: BASOPHILS % 1.3 % (0.0-2.0); EOSINOPHILS % 1.8 % (0.0-5.0); HEMOGLOBIN. 15.2 g/dL (14.0-18.0); LYMPHOCYTES % 18.1 % (20.0-50.0); MEAN CORPUSCULAR HEMOGLOBIN 31.9 pg (28.0-32.0); MEAN CORPUSCULAR HGB CONC 33.9 g/dL (31.0-37.0); MEAN CORPUSCULAR VOLUME 94.2 fL (80.0-94.0); MEAN PLATELET VOLUME 8.2 fl (7.4-10.4); MONOCYTES % 8.9 % (2.0-8.0); NEUTROPHILS % 69.9 % (40.0-76.0); PLATELET 173 x1000/uL (130-400); RED BLOOD CELL COUNT 4.77 mill/uL (4.7-6.1); RED CELL DISTRIBUTION WIDTH 12.7 % (11.6-14.6)
== END | disposition home or self-care (01) ==
LOC: LAB 06:59
PROVIDERS: ATTEND Specialist
DX: E78.2 Mixed hyperlipidemia (principal); E11.9 Type 2 diabetes mellitus without complications; E55.9 Vitamin D deficiency, unspecified; D64.9 Anemia, unspecified
CPT/HCPCS: 36415; 80053; 80061; 82306; 83036; 84439; 84443; 84481; 85025

== ENCOUNTER → 2023-12-05 | Outpatient (CLI) | payer BC ==
[2023-12-05 11:03] LABS: CARBON DIOXIDE 31 mEq/L (21-32); CHLORIDE 104 mEq/L (98-107); POTASSIUM 4.1 mEq/L (3.5-5.1); SODIUM 139 mEq/L (136-145)
[2023-12-05 11:04] LABS: CALCIUM 9.5 mg/dL (8.7-10.4)
[2023-12-05 11:09] LABS: CREATININE 1.4 mg/dL (0.6-1.3); GLUCOSE 143 mg/dL (70-105); UREA NITROGEN BLOOD 18 mg/dL (9-23)
== END | disposition home or self-care (01) ==
LOC: LAB 06:55
PROVIDERS: ATTEND Urology
DX: C61 Malignant neoplasm of prostate (principal)
CPT/HCPCS: 36415; 80048

== ENCOUNTER → 2024-02-10 | Outpatient (CLI) | payer BC ==
[2024-02-10 11:15] LABS: BASOPHILS % 0.8 % (0.0-2.0); EOSINOPHILS % 1.5 % (0.0-5.0); HEMATOCRIT. 43.9 % (42.0-52.0); HEMOGLOBIN. 14.9 g/dL (14.0-18.0); LYMPHOCYTES % 14.9 % (20.0-50.0); MEAN CORPUSCULAR HEMOGLOBIN 32.6 pg (28.0-32.0); MEAN CORPUSCULAR HGB CONC 33.8 g/dL (31.0-37.0); MEAN CORPUSCULAR VOLUME 96.3 fL (80.0-94.0); MEAN PLATELET VOLUME 7.8 fl (7.4-10.4); MONOCYTES % 8.2 % (2.0-8.0); NEUTROPHILS % 74.6 % (40.0-76.0); PLATELET 214 x1000/uL (130-400); RED BLOOD CELL COUNT 4.56 mill/uL (4.7-6.1); RED CELL DISTRIBUTION WIDTH 13.3 % (11.6-14.6); WHITE BLOOD COUNT 6.2 x1000/uL (4.5-11.0)
[2024-02-10 11:25] LABS: CARBON DIOXIDE 28 mEq/L (21-32); CHLORIDE 105 mEq/L (98-107); POTASSIUM 4.1 mEq/L (3.5-5.1); SODIUM 139 mEq/L (136-145)
[2024-02-10 11:26] LABS: CALCIUM 9.6 mg/dL (8.7-10.4)
[2024-02-10 11:30] LABS: CREATININE 1.1 mg/dL (0.6-1.3); GLUCOSE 139 mg/dL (70-105)
[2024-02-10 11:31] LABS: LDL CHOLESTEROL 99 mg/dL (5-100); TRIGLYCERIDE 70 mg/dL (0-150); UREA NITROGEN BLOOD 20 mg/dL (9-23)
[2024-02-10 11:32] LABS: ALANINE AMINOTRANSFERASE 19 IU/L (10-49); ALBUMIN 4.2 g/dL (3.2-4.8); ASPARTATE AMINOTRANSFERASE 22 IU/L (<34)
[2024-02-10 11:33] LABS: CHOLESTEROL 165 mg/dL (<200); HDL CHOLESTEROL 50 mg/dL (>55); PROTEIN TOTAL 7.3 g/dL (6.0-8.3)
== END | disposition home or self-care (01) ==
LOC: LAB 08:31
PROVIDERS: ATTEND Internal Medicine Endocrinology, Diabetes & Metabolism
DX: I10 Essential (primary) hypertension (principal); E11.9 Type 2 diabetes mellitus without complications; E78.5 Hyperlipidemia, unspecified; E55.9 Vitamin D deficiency, unspecified
CPT/HCPCS: 36415; 80053; 80061; 82306; 83036; 85025

== ENCOUNTER → 2024-04-21 | Outpatient (CLI) | payer BC ==
[2024-04-21 11:57] LABS: T4 FREE 1.36 ng/dL (0.89-1.76); THYROID STIMULATING HORMONE 1.27 uIU/mL (0.55-4.78)
[2024-04-23 08:09] LABS: VITAMIN D 25-OH 35.8 ng/mL (30.0-100.0)
== END | disposition home or self-care (01) ==
LOC: LAB 10:32
PROVIDERS: ATTEND Specialist
DX: E11.9 Type 2 diabetes mellitus without complications (principal); E78.2 Mixed hyperlipidemia; E55.9 Vitamin D deficiency, unspecified; D64.9 Anemia, unspecified
CPT/HCPCS: 36415; 80061; 82306; 83036; 84439; 84443; 84480

== ENCOUNTER → 2024-04-21 | Outpatient (CLI) | payer BC ==
[2024-04-21 11:42] LABS: HEMATOCRIT. 43.1 % (42.0-52.0); HEMOGLOBIN. 14.9 g/dL (14.0-18.0); LYMPHOCYTES % 19.5 % (20.0-50.0); MEAN CORPUSCULAR HEMOGLOBIN 32.2 pg (28.0-32.0); MEAN CORPUSCULAR HGB CONC 34.6 g/dL (31.0-37.0); NEUTROPHILS % 68.5 % (40.0-76.0); PLATELET 204 x1000/uL (130-400); RED BLOOD CELL COUNT 4.63 mill/uL (4.7-6.1); RED CELL DISTRIBUTION WIDTH 12.4 % (11.6-14.6); WHITE BLOOD COUNT 6.1 x1000/uL (4.5-11.0)
[2024-04-21 11:46] LABS: CHLORIDE 103 mEq/L (98-107); POTASSIUM 4.2 mEq/L (3.5-5.1); SODIUM 136 mEq/L (136-145)
[2024-04-21 11:47] LABS: CARBON DIOXIDE 28 mEq/L (21-32)
[2024-04-21 11:48] LABS: CALCIUM 9.7 mg/dL (8.7-10.4)
[2024-04-21 11:52] LABS: CREATININE 1.1 mg/dL (0.6-1.3); GLUCOSE 134 mg/dL (70-105); UREA NITROGEN BLOOD 15 mg/dL (9-23)
[2024-04-21 11:54] LABS: ALANINE AMINOTRANSFERASE 19 IU/L (10-49); ALBUMIN 4.3 g/dL (3.2-4.8); ASPARTATE AMINOTRANSFERASE 23 IU/L (<34); LACTATE DEHYDROGENASE 124 IU/L (120-246)
[2024-04-21 11:55] LABS: BILIRUBIN TOTAL 0.9 mg/dL (0.1-1.0); PROTEIN TOTAL 7.1 g/dL (6.0-8.3)
== END | disposition home or self-care (01) ==
LOC: LAB 10:40
PROVIDERS: ATTEND Internal Medicine Hematology & Oncology
DX: C88.40 Extranodal marginal zone B-cell lymphoma of mucosa-associated lymphoid tissue [MALT-lymphoma] not having achieved remission (principal)
CPT/HCPCS: 36415; 80053; 83615; 85025

== ENCOUNTER → 2024-06-03 | Outpatient (CLI) | payer BC ==
[2024-06-06 08:10] LABS: % FREE PSA 26.3 % (.); PROSTATE SPECIFIC AG TOTAL 17.7 ng/mL (0.0-4.0); PSA FREE 4.65 ng/mL
== END | disposition home or self-care (01) ==
LOC: LAB 11:42
PROVIDERS: ATTEND Urology
DX: R97.20 Elevated prostate specific antigen [PSA] (principal)
CPT/HCPCS: 84153; 84154

== ENCOUNTER → 2024-08-18 | Outpatient (CLI) | payer BC ==
[2024-08-18 12:04] LABS: EOSINOPHILS % 2.2 % (0.0-5.0); HEMATOCRIT. 44.5 % (42.0-52.0); HEMOGLOBIN. 15.3 g/dL (14.0-18.0); MEAN CORPUSCULAR HEMOGLOBIN 31.8 pg (28.0-32.0); MEAN CORPUSCULAR HGB CONC 34.4 g/dL (31.0-37.0); MEAN CORPUSCULAR VOLUME 92.2 fL (80.0-94.0); MONOCYTES % 8.7 % (2.0-8.0); NEUTROPHILS % 73.1 % (40.0-76.0); PLATELET 176 x1000/uL (130-400); RED BLOOD CELL COUNT 4.83 mill/uL (4.7-6.1); RED CELL DISTRIBUTION WIDTH 12.5 % (11.6-14.6); WHITE BLOOD COUNT 5.8 x1000/uL (4.5-11.0)
[2024-08-18 12:40] LABS: CARBON DIOXIDE 29 mEq/L (21-32); CHLORIDE 101 mEq/L (98-107); POTASSIUM 4.1 mEq/L (3.5-5.1); SODIUM 139 mEq/L (136-145)
[2024-08-18 12:41] LABS: CALCIUM 9.4 mg/dL (8.7-10.4)
[2024-08-18 12:45] LABS: CREATININE 1.3 mg/dL (0.6-1.3); GLUCOSE 210 mg/dL (70-105)
[2024-08-18 12:46] LABS: LDL CHOLESTEROL 94 mg/dL (5-100); TRIGLYCERIDE 106 mg/dL (0-150); UREA NITROGEN BLOOD 19 mg/dL (9-23)
[2024-08-18 12:47] LABS: ALANINE AMINOTRANSFERASE 23 IU/L (10-49); ALBUMIN 4.3 g/dL (3.2-4.8); ASPARTATE AMINOTRANSFERASE 26 IU/L (<34)
[2024-08-18 12:48] LABS: CHOLESTEROL 157 mg/dL (<200); HDL CHOLESTEROL 51 mg/dL (>55); PROTEIN TOTAL 7.3 g/dL (6.0-8.3)
[2024-08-18 12:50] LABS: T4 FREE 1.37 ng/dL (0.89-1.76); THYROID STIMULATING HORMONE 0.85 uIU/mL (0.55-4.78)
[2024-08-20 04:12] LABS: *CREATININE RANDOM URINE 81.5 mg/dL (Not Estab.); MICROALBUMIN RANDOM URINE 51.5 ug/mL (Not Estab.)
[2024-08-20 06:12] LABS: VITAMIN D 25-OH 42.1 ng/mL (30.0-100.0)
== END | disposition home or self-care (01) ==
LOC: LAB 11:04
PROVIDERS: ATTEND Internal Medicine Endocrinology, Diabetes & Metabolism
DX: I10 Essential (primary) hypertension (principal); E11.9 Type 2 diabetes mellitus without complications; E78.5 Hyperlipidemia, unspecified; E55.9 Vitamin D deficiency, unspecified
CPT/HCPCS: 36415; 80053; 80061; 82043; 82306; 82570; 83036; 83695; 84439; 84443; 85025

== ENCOUNTER → 2024-10-26 | Outpatient (CLI) | payer BC ==
[2024-10-26 15:26] LABS: BASOPHILS % 1.1 % (0.0-2.0); EOSINOPHILS % 2.7 % (0.0-5.0); HEMATOCRIT. 40.8 % (42.0-52.0); HEMOGLOBIN. 14.2 g/dL (14.0-18.0); LYMPHOCYTES % 19.4 % (20.0-50.0); MEAN PLATELET VOLUME 7.8 fl (7.4-10.4); MONOCYTES % 8.6 % (2.0-8.0); NEUTROPHILS % 68.2 % (40.0-76.0); PLATELET 204 x1000/uL (130-400); RED BLOOD CELL COUNT 4.40 mill/uL (4.7-6.1); RED CELL DISTRIBUTION WIDTH 13.0 % (11.6-14.6)
[2024-10-26 15:46] LABS: CREATININE 1.2 mg/dL (0.6-1.3)
[2024-10-26 15:47] LABS: UREA NITROGEN BLOOD 15 mg/dL (9-23)
[2024-10-26 15:48] LABS: ASPARTATE AMINOTRANSFERASE 21 IU/L (<34); LACTATE DEHYDROGENASE 128 IU/L (120-246)
[2024-10-26 15:49] LABS: BILIRUBIN TOTAL 0.9 mg/dL (0.1-1.0); PROTEIN TOTAL 7.1 g/dL (6.0-8.3)
== END | disposition home or self-care (01) ==
LOC: LAB 14:43
PROVIDERS: ATTEND Internal Medicine Hematology & Oncology
DX: C88.40 Extranodal marginal zone B-cell lymphoma of mucosa-associated lymphoid tissue [MALT-lymphoma] not having achieved remission (principal); C85.80 Other specified types of non-Hodgkin lymphoma, unspecified site
CPT/HCPCS: 36415; 80053; 83615; 85025

== ENCOUNTER → 2024-10-29 | Outpatient (CLI) | payer BC ==
[~2024-10-29] MED LIST changes: +BARIUM SULFATE 450ML ORAL SUSP ONE; +IOHEXOL-300 100 ML BOTTLE ONE
== END | disposition home or self-care (01) ==
LOC: CT 08:04
PROVIDERS: ATTEND Internal Medicine Hematology & Oncology
DX: N40.0 Benign prostatic hyperplasia without lower urinary tract symptoms (principal); C85.80 Other specified types of non-Hodgkin lymphoma, unspecified site; C81.90 Hodgkin lymphoma, unspecified, unspecified site; N28.1 Cyst of kidney, acquired; K42.9 Umbilical hernia without obstruction or gangrene; I25.10 Atherosclerotic heart disease of native coronary artery without angina pectoris; M47.814 Spondylosis without myelopathy or radiculopathy, thoracic region
CPT/HCPCS: 71260; 74177; Q9967; Z7610

== ENCOUNTER → 2025-01-01 | Outpatient (CLI) | payer BC ==
[~2025-01-01] MED LIST changes: -BARIUM SULFATE 450ML ORAL SUSP ONE; -IOHEXOL-300 100 ML BOTTLE ONE
== END | disposition home or self-care (01) ==
LOC: CARD 07:04
PROVIDERS: ATTEND Internal Medicine Critical Care Medicine
DX: Z03.89 Encounter for observation for other suspected diseases and conditions ruled out (principal)
CPT/HCPCS: 93306